=== PATIENT | male | born 1965 | race Caucasian/White ===

== ENCOUNTER 2018-12-06 01:25 | Emergency (ER) | payer OTHER, SELFPAY ==
[2018-12-06 01:26] VITALS: BP 143/77; PULSE 81; RESP 16; TEMP 36.9; O2SAT 98; BMI 31.4
--- NOTE | 2018-12-06 01:31 | ED.DCSUM_ITS ---
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 Negative for: Weakness, Loss of Funtion Narrative: Last tetanus more than 10 yrs ago. RHD. Past Medical History - Allergies and Home Meds Allergies/Adverse Reactions: Allergies No Known Allergies Allergy (Verified 12/06/18 01:34) Primary Care Physician: Mia Hoang [GROUP OF PHYSICIANS] - 10 Day for suture removal Preston Mahoney MD [Primary Care Provider] - Past Medical History: None Drugs: None Review of Systems Musculoskeletal: Reports: Extremity Pain. Denies: Swelling Skin: Reports: Wounds. Denies: Rash Neurological: Reports: Parasthesia. Denies: Weakness Physical Exam Vital Signs/Narrative: Vital Signs Temp Pulse Resp BP Pulse Ox 12/06/18 01:26 98.5 F 81 16 143/77 H 98 General: Well nourished, Well developed Head: Normocephalic, Atraumatic Extremeties: Right ring finger with volar laceration, FDS tendon intact, no bony tenderness, no deformity. Mild venous oozing. Full range of motion throughout. No nail damage or subungual hematoma. No tissue loss. Skin: Normal color, Trauma - 1cm clean linear full thickness laceration to volar right ring finger diagonal across DIPJ Neurological: Alert, Oriented x3, Cranial nerves II-XII grossly intact, Normal Strength, Normal Gait, Parasthesia - radial aspect of distal right ring finger only Psychological: Normal affect, Normal Mood Procedures - Lacerations right ring finger Length: 1 cm Depth: Sub Q Shape: Linear Prep: Sterile Conditions, Chlorhexadine Laceration repair: Lidocaine - 1cc Irrigated (ml): 30 Number of Sutures/Anthony: 2 Suture Information: Ethilon, Simple, 5-0 - #2 ED Disposition - Plan for ED Patient: Disposition: Home or Assisted Living Diagnosis: Laceration of right ring finger w/o foreign body w/o damage to nail, Tetanus- diphtheria (Td) vaccination Instructions: LACERATION, Hand Referrals: Preston Mahoney MD [Primary Care Provider[facility] [GROUP OF PHYSICIANS] - 10 Day for suture removal
[2018-12-06] MEDS: Diphth,Pertuss(Acell),Tet Vac 0.5 ML Vial IM (02:03)
[2018-12-06 04:35] VITALS: BP 158/86; PULSE 82; RESP 17; O2SAT 98
== END 2018-12-06 04:37 | disposition home or self-care (01) ==
PROVIDERS: Emergency Provider Emergency Medicine; Family Provider Family Medicine; PCP Family Medicine
DX: S61.214A Laceration without foreign body of right ring finger without damage to nail, initial encounter (principal); W45.8XXA Other foreign body or object entering through skin, initial encounter; Y93.89 Activity, other specified; Y92.63 Factory as the place of occurrence of the external cause; Y99.0 Civilian activity done for income or pay; Z23 Encounter for immunization
CPT/HCPCS: 12001; 90471; 90715; 99283